=== PATIENT | female | born 1955 | race Caucasian/White ===

== ENCOUNTER 2017-08-22 08:49 | Outpatient (CLI) | payer OTHER | END 2017-08-22 08:50 | disposition home or self-care (01) | LOC: BICULT 08:49 | PROVIDERS: ATTEND Internal Medicine Gastroenterology | DX: B18.2 Chronic viral hepatitis C (principal); R94.5 Abnormal results of liver function studies | CPT/HCPCS: 76705 ==

== ENCOUNTER 2021-03-24 13:55 | Outpatient (CLI) | payer OTHER | END 2021-03-24 13:56 | disposition home or self-care (01) | LOC: BICMAMMO 13:55 | PROVIDERS: ATTEND Family Medicine | DX: Z12.31 Encounter for screening mammogram for malignant neoplasm of breast (principal) | CPT/HCPCS: 77063; 77067 ==

== ENCOUNTER 2023-06-20 13:05 | Outpatient (CLI) | payer MEDICARE | END 2023-06-20 13:06 | disposition home or self-care (01) | LOC: BICMAMMO 13:05 | PROVIDERS: ATTEND Family Medicine | DX: Z12.31 Encounter for screening mammogram for malignant neoplasm of breast (principal) | CPT/HCPCS: 77063; 77067 ==